=== PATIENT | male | born 1985 | race Caucasian/White ===

== ENCOUNTER 2018-10-08 20:34 | Emergency (ER) | payer OTHER ==
[2018-10-08] MEDS ORDERED: CEPHALEXIN 500MG PREPACK#4 BTL TAKEHOME ONE (21:36)
[2018-10-08] MEDS ORDERED: TDAP ADULT 0.5 ML INJ (BOOSTRIX) IM ONE (21:36)
--- NOTE | 2018-10-08 21:36 | EDPHY ---
H & P Stated Complaint: pain in left big toe x 1 wk, draind yesterday at [facility] Time Seen by Provider: 10/08/18 21:32 HPI/ROS: HPI: This is a 33-year-old male who presents with Chief Complaint: pain in left big toe x 1 wk, drained yesterday at [facility] Location: Left big toe Quality: Pain Duration: 1 week Signs and Symptoms: No bleeding, no radiation, no numbness, no weakness, no tingling, no incontinence, no decreased range of motion, no swelling, + pain, no fever Timing: Improving Severity: Moderate Context: Patient presents with complaints of left big toe pain x1 week. He advises that yesterday at Urgent Care in [place] he had part of his toenail removed. He reports that it is no longer swollen or red. He is unsure of his tetanus status. He has been traveling from [place] over the last several weeks. He is homeless. He has been wearing wet socks and wet boots. Denies fever, radiation, decreased range of motion, paresthesias. Modifying Factors: None Comment: ROS: A comprehensive 10 system review of systems is otherwise negative aside from elements mentioned in the history of present illness. MEDICAL/SURGICAL/SOCIAL HISTORY: Medical history: L4-s1 disk injury Surgical history: urethral surgery, thumb/ wrist surgery Social history: Homeless. Heavy smoker. Originally from [place]. CONSTITUTIONAL: Intoxicated, physically fit large stature white male, awake and alert, no obvious distress HEENT: Atraumatic and normocephalic, PERRL, EOMI. Nares patent; no rhinorrhea; no nasal mucosal edema. Tympanic membranes clear. Oropharynx clear, no exudate and moist pink mucosa. Airway patent. No lymphadenopathy. No meningismus. Cardiovascular: Normal S1/S2, regular rate, regular rhythm, without murmur rub or gallop. PULMONARY/CHEST: Symmetrical and nontender. Clear to auscultation bilaterally. Good air movement. No accessory muscle usage. ABDOMEN: Soft, nondistended, nontender, no rebound, no guarding, no peritoneal signs, no masses or organomegaly. No CVAT. EXTREMITIES: 2/2 pulses, strength 5/5, no deformities, no clubbing, no cyanosis or edema. NEUROLOGICAL: no focal neuro deficits. GCS 15. SKIN: Warm and dry, both feet show mild macerations and breakdown but no obvious scan green, necrosis, cellulitis, abscess. Left big toe shows lateral partial nail removal with no erythema, bleeding, discharge. no rash. Good capillary refill. Source: Patient Exam Limitations: No limitations - Personal History Current Tetanus Diphtheria and Acellular Pertussis (TDAP): Unsure - Medical/Surgical History Hx Asthma: No Hx Chronic Respiratory Disease: No Hx Diabetes: No Hx Cardiac Disease: No Hx Renal Disease: No Hx Cirrhosis: No Hx Alcoholism: No Hx HIV/AIDS: No Hx Splenectomy or Spleen Trauma: No Other PMH: L4-s1 disk injury, urethral surgery, thumb/ wrist surgery, - Social History Smoking Status: Heavy smoker Constitutional: Initial Vital Signs Temperature (C) 37.3 C 10/08/18 20:48 Heart Rate 94 10/08/18 20:48 Respiratory Rate 16 10/08/18 20:48 Blood Pressure 119/77 10/08/18 20:48 O2 Sat (%) 98 10/08/18 20:48 Allergies/Adverse Reactions: No Known Allergies Allergy (Unverified 10/08/18 20:47) Home Medications: Medication Instructions Recorded Cephalexin [Keflex (*)] 500 mg PO TID #21 cap 10/08/18 Medical Decision Making ED Course/Re-evaluation: Vital signs reviewed and stable upon arrival. Nontoxic in appearance. Tetanus booster given. Feet are macerated but no cellulitis, abscess, trench foot. Soaked in 50/50 mixture of Betadine and normal saline. Dried thoroughly and individual digits wrapped with nonocclusive dressing. Given a prepack of Keflex and prescription for same. No signs of neurovascular compromise/tenting of skin/compartment syndrome/ extremities and joints examined above and below area of concern and are neurovascularly intact. This patient was seen under the supervision of my secondary supervising physician. I evaluated and cared for this patient with attending. Differential Diagnosis: Differential diagnosis includes but is not limited to cellulitis, gangrene, trench foot, abscess, necrotizing soft-tissue infections, osteomyelitis, diabetic foot infection, wet sock erosions Departure - Departure Disposition: Home, Routine, Self-Care Clinical Impression: Maceration of skin Condition: Good Instructions: Cellulitis (ED) Additional Instructions: Keep feet clean, warm, dry, bandaged and elevate as needed. Take antibiotic as directed. Do not skip a dose. Referrals: Patient,NotPresent [Primary Care Provider] - As per Instructions [facility],. [Clinic] - As per Instructions Prescriptions: Cephalexin [Keflex (*)] 500 mg PO TID #21 cap
[2018-10-08 22:34] VITALS: BP 103/62
== END 2018-10-08 22:50 | disposition home or self-care (01) ==
DX: R23.8 Other skin changes (principal); M79.675 Pain in left toe(s); Z23 Encounter for immunization; Z59.0 Homelessness

== ENCOUNTER 2018-10-09 14:22 | Emergency (ER) | payer OTHER ==
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
[2018-10-09] MEDS ORDERED: LORazepam 2 MG/ML INJ IVP ONE (14:48)
[2018-10-09] MEDS ORDERED: OLANZapine 10 MG/2 ML VIAL IV ONE (14:48)
[2018-10-09 16:03] LABS: PLATELET COUNT 268 10^3/uL (150-400)
[2018-10-10] MEDS ORDERED: MIDAZOLAM 2 MG/2 ML VIAL ONE (02:54)
[2018-10-10] MEDS ORDERED: NICOTINE POLACRILEX 2 MG GUM B ONE (03:00)
[2018-10-10] MEDS ORDERED: MIDAZOLAM 10 MG/2 ML VIAL IM ONE (03:03)
[2018-10-10] MEDS: NICOTINE POLACRILEX 2 MG GUM B PRN ×3 (03:08→17:02)
[2018-10-10] MEDS ORDERED: LORazepam 1 MG TAB PO ONE ×4 (07:30→17:27)
--- NOTE | 2018-10-10 14:38 | ASMTLCPROG ---
Notes Note: Notes: Spoke to Chanel at [facility] ([phone]) who stated should have bed availability tomorrow. Please call in AM to confirm placement. Date Signed: 10/10/2018 02:37 PM Electronically Signed By:Jada Shearer
--- NOTE | 2018-10-10 16:23 | ASMTTLCEVL ---
TLC Evaluation - Basic Information Evaluation Start Date and 10/10/2018 06:01 AM Time Hospital Status Answers: M1 Hold 72-hr M1 Hold Start Date 10/09/2018 02:30 PM and Time Patient statement Notes: They said I was trespassing. I was checking out a fitness center, and they aggressively told me to leave. I wanted to smoke weed, and I was looking for a cigarette. Narrative Notes: Pt is a 33 yo, , unemployed, homeless, , male, with a history of PTSD brought to [facility] ED by [employer] on an M1 hold on 10/09/18 which states, Hira contacted today at [id number], Jacqueline Frank was threatening staff and customers trying to start fights. Threatened to kill business owners when he got out. Last night was jailed for being combative with police. Upon release became combative and antagonistic with [facility] staff. Per ED report pt was released from [facility] at 10:00am on 10/09/18, then went to a local business in [place] and was bothering the midwife and birth center owner and patrons. He was asking them to punch him so he could then punch them. During the interview, however, pt denied being combative and instead indicated the business midwife and birth center owner was aggressive with him because he was trespassing. Pt reported he used marijuana yesterday morning, though the amount is unknown. UDS results positive for marijuana, and benzodiazepines which were administered in the ED. He denied current thoughts of harming himself or others. Per ED staff, pt was sedated last night due to becoming verbally aggressive. He appeared clean and made good eye contact. He was moderately cooperative, but did not appear to be a reliable historian. Pt did not endorse perceptual disturbances or auditory/visual hallucinations. He did not appear to be responding to internal stimuli. Pt did not require mechanical restraints while in the ED. He was sedated again following the interview, due to becoming verbally aggressive. Diagnosis History Notes: Pt reported he was diagnosed with PTSD while hospitalized at [facility] four years ago due to nervous breakdown. 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 Pt reported he was diagnosed with ADHD while in school, but did not indicate who made this diagnosis. He denied ever being prescribed medication to treat this disorder, but stated he has taken Adderall before and found it to be greatly beneficial. He identified his most recent therapist as Dr. Burgos in [place], [place]. He reported he last met with Dr. Burgos four months ago. Prior suicide attempts Notes: Pt denied a history of suicide attempts. When directly asked, he initially denied ever experiencing suicidal thoughts. However, later in the interview he stated, I felt like I wanted to kill myself 200 times due to his history of chronic back pain. Again, he denied ever attempting suicide. Prior hospitalizations Notes: Pt reported he has been hospitalized approximately eight times; six times at [facility], and the other two he could not recall. He stated his hospitalization at [facility] four years ago was due to a nervous breakdown. He did not provide additional information about prior hospitalizations. Treatment Responses Notes: Unable to assess. History of violence Notes: Pt reported he got into some fights while in school. He reported he was arrested for assault in [place] four years ago. Pt indicated he has been arrested multiple times for assault, but would not provide additional details. When asked if he assaults people often he stated, If they hit me first. Not often. He denied current thoughts of harming others. Therapist: Denied Psychiatrist: Denied Medications (name, dosage, route, freq uency) Notes: Pt denied he is currently prescribed medication. Allergies/Reaction Notes: NKDA. Sleep Notes: Pt denied recent changes in sleep pattern. Appetite Notes: Pt denied recent changes in appetite. Medical/Surgical history Notes: Pt reported he has undergone urethral surgery, and surgery on his thumb, and toe. He reported he has experienced chronic back pain for the past 15 years, which has been largely untreated. He reported he uses marijuana to self-medicate his back pain. Substance use history (frequency, intensity, his tory, duration) Notes: Pt reported he last used marijuana yesterday morning. When asked how much he typically consumes he stated, As much as humanly possible. I would rather than not have it. He reported he ingests marijuana any way I can. When asked what he likes about marijuana he stated, It loosens up my body. Gives me high high intuition, tells me if people are lying. Tells me which direction to go, if people are bullshitting. Its like God. It tells me when to punch people. Pt described a routine in which he consumes large amounts of marijuana, sugar, and sometimes caffeine, and listens to loud music in order to mimic opiates in my brain and relieve physical pain. He stated, Marijuana and music is the only thing that keeps people from killing themselves if they have PTSD. Pt did not provide additional information about his substance use history. Family composition Notes: Pt reported his parents are no longer together, and he has one older brother. He reported his family resides in [place], and denied having any recent contact with them. He stated, We dont get along, I dont talk to them. Theyve lost their son. They dont exist to me anymore. Pt reported his father blocked his phone number. He called his father during the interview and left a voicemail indicating he was meeting with a therapist, and requested this risk management internship to affirm this for his father. Pt did not provide additional information about family composition. Need for family Answers: No participation in patient's care Family psychiatric/substance abuse history Notes: Pt reported his mother is addicted to pain killers and is a huge drug addict. He denied a family history of mental health diagnoses. Developmental history Notes: Unable to assess. Abuse concerns Answers: None Marital status/children Notes: Pt denied he has ever been or fathered any children. He reported he recently broke up with his fianc, Renetta Prabhakar, for whom he moved to [place]. He reported the police told him he could no longer contact her, but did not believe there was a protection order against him. When asked why they broke up he stated, We got into an argument over kids or something. Or me smoking weed in her house. I got pissed and left. She still likes me, Im just waiting for her to contact me so I can give her a kiss before I go to [facility]. Living situation Notes: Pt reported he is homeless and currently lives in his car. Sexual history/orientation Notes: Pt is heterosexual. Not active. Peer support/family strengths Notes: Pt reported his ex-fianc, Renetta Prabhakar, is his only support, though they currently have no contact. Education level/history Notes: Pt reported he completed high school and some college in [place]. Work history Notes: Pt reported he is currently unemployed. 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 He reported he is a . Notes: Pt reported he was in the [employer] from 2002 until 2005. He reported he was honorably discharged due to being injured in training. He denied ever being in combat. 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 Legal Notes: Pt reported he was arrested for assault four years ago. He denied being convicted of this charge. When asked about additional legal history he stated, Youll have to look at my criminal record and did not provide additional information. Scientology/Spiritual Notes: Pt identified himself as Agnostic. None identified which might impact treatment. Leisure Notes: Pt reported he enjoys marijuana and music, marijuana and music, marijuana and music. 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 He reported he is planning to go to [place], [place] to do stand-up comedy. Collateral Notes: Collateral data was provided by officers who brought pt in, the M1 hold, and previous medical record from 10/09/18 visit. Patient's strengths Answers: Artistic/Creative/Musical (Please select at least TWO strengths): Athletic Funny/Using Humor TLC Evaluation - Mental Status Exam Appearance: Answers: Appropriate Clean Well Groomed Neat Eye Contact: Answers: Good/Direct Mood: Answers: Elevated Irritable Affect: Answers: Agitated Congruent w/ Mood Expansive Labile Behavior: Answers: Appropriate Cooperative Impulsive Talkative Speech: Answers: Relevant Illogical Clear Coherent Circumstantial Dramatic Excessive Flight of Ideas Hyperverbal Loose Associations Perseverating Rambling Rapid Thought Process: Answers: Organized Oriented Alert Circumstantial Racing Thoughts Tangential Insight: Answers: Fair Judgement: Answers: Poor Manic Signs/Symptoms Answers: Distractibility Euphoria Grandiosity Impulsivity Irritability Mood Swings Pressured Speech Racing Thoughts Depression Answers: Difficulty Concentrating Signs/Symptoms: Psychomotor Agitation Hallucinations: Answers: None Current Stage of Change Answers: Precontemplation Pt reported to have Answers: No suicidal/self-injuring ideation/behavior? Pt reported to be making Answers: No suicidal/self-injuring threats? Pt reported to have Answers: Yes aggression/assault ideation/behavior? Pt reported to be making Answers: Yes aggression/assault threats? Pt exhibits inability to Answers: No care for self/grave disability? Ideation/behavior is Answers: Yes chronic? Patient has a specific Answers: No plan? Ideation involves Answers: No serious/lethal intent? Ideation has Answers: Yes delusional/hallucinatory content? History of Answers: No suicidal/self-injuring ideation, behavior, or threats? History of Answers: Yes aggressive/assaultive ideation, behavior, or threats? History of serious Answers: No physical harm to self/others while in treatment setting? TLC Evaluation - Suicide/Homicide Risk Suicide Risk Factors: Answers: Agitation Alcohol/Heavy Drug Use Bipolar Disorder Financial Difficulties Impulsivity Lack of Social Support Lack/Loss of Employment Legal Difficulties Serious Health Issue, Pain Single Unstable Living Situation Homicide/violence risk Answers: Heavy Drug Use factors: Threats Towards Others Current Suicidal Answers: No Ideation? Current Suicidal Ideation Answers: No in the Past 48 Hours? Current Suicidal Ideation Answers: No in the Past Month? Suicide Internal Answers: Absence of Psychosis Protective Factors: [place] with Stress Suicide External Answers: Positive Therapeutic Protective Factors: Relationships Ranking of patient's Answers: Low suicidal risk: Ranking of patient's Answers: Moderate homicidal risk: TLC Evaluation - Wrap-up BDI Total Score: Not completed due to pt being escalated. BSS Total Score: Not completed due to pt being escalated. AXIS I Diagnosis (include DSM-V and ICD-10 codes), must also be entered in [employer], which is the source of truth. Notes: Unspecified Bipolar and Related Disorder 296.80 (F31.9) Posttraumatic Stress Disorder 309.81 (F43.10) In consultation with [facility] on-call psychiatrist, Mark Freitas MD, Dr. Freitas concurred that pt appears to meet 27-65 criteria requiring psychiatric hospitalization as pt appears to be at risk of harm to self/others/gravely disabled due to a mental illness condition. Pt was read the Patient Rights and Responsibilities Statement on October 10, 2018 at 09:38 hrs, original placed on chart, and was given photocopy of Rights. Pt signed the Patient Rights. Placement has not been secured at this time. Evaluation End Date and 10/10/2018 09:30 AM Time (HH:JODIE): Date Signed: 10/10/2018 04:23 PM Electronically Signed By:Jada Shearer
[2018-10-10] MEDS ORDERED: OLANZapine 5 MG TAB PO ONE (17:27)
[2018-10-10] MEDS ORDERED: LORazepam 1 MG TAB ONE (17:27)
[2018-10-10] MEDS ORDERED: OLANZapine DISINTEGR 10 MG TAB ONE (17:27)
[2018-10-10] MEDS ORDERED: HYDROCODONE/APAP 5/325 TAB PO ONE (17:54)
[2018-10-11] MEDS ORDERED: HYDROCODONE/APAP 5/325 TAB ONE (00:58)
[2018-10-11] MEDS ORDERED: HYDROCODONE/APAP 5/325 TAB PO ONE ×2 (01:03→02:26)
[2018-10-11] MEDS: NICOTINE POLACRILEX 2 MG GUM B PRN (01:03)
[2018-10-11] MEDS ORDERED: LORazepam 1 MG TAB PO ONE ×2 (01:28→09:39)
[2018-10-11] MEDS ORDERED: CEPACOL LOZENGE PO ONE ×2 (01:30→01:32)
[2018-10-11] MEDS ORDERED: OLANZapine DISINTEGR 10 MG TAB ONE ×2 (02:18→10:48)
[2018-10-11] MEDS ORDERED: OLANZapine 10 MG/2 ML VIAL ONE (06:48)
[2018-10-11] MEDS ORDERED: MIDAZOLAM 2 MG/2 ML VIAL ONE (06:49)
[2018-10-11] MEDS ORDERED: MIDAZOLAM 10 MG/2 ML VIAL IM ONE (06:52)
[2018-10-11] MEDS ORDERED: OLANZapine 10 MG/2 ML VIAL IM ONE (06:52)
[2018-10-11] MEDS: CEPHALEXIN 500 MG CAP PO SCH (09:25)
[2018-10-11] MEDS ORDERED: LORazepam 1 MG TAB ONE (09:37)
[2018-10-11] MEDS ORDERED: OLANZapine DISINTEGR 10 MG TAB PO ONE (10:49)
[2018-10-11 10:59] VITALS: BP 115/60
--- NOTE | 2018-10-11 15:25 | ASMTTCLDSP ---
TLC Discharge Disposition Disposition: Answers: Transfer Disposition Notes: Notes: Transfer placement accepted at [facility] under Dr. Marvin Bolton. Discharge Concerns/Recommendations: Notes: In consultation with [facility] ED physician, Jonathan Stockton MD, pt appears to meet 27-65 critieria requiring psychiatric hospitalization as pt appears to be a danger to others and gravely disabled due to a mental illness condition. Was patient given the Answers: Not applicable Inpatient Behavioral Health Prohibited Belongings List while in the ED? Type of Hold: Answers: M1/72-hour Hold Hold initiated by: Answers: Police For Transfers, Accepting [facility] Hospital Facility: For Transfers, Accepting Marvin Bolton MD Psychiatrist: For Transfers, Reason Pt has Veterans benefits Patient is Being Transferred: Date Signed: 10/11/2018 03:25 PM Electronically Signed By:Jaren Gomez
== END 2018-10-11 10:58 ==
PROC: GZ11ZZZ Psychological Tests, Personality and Behavioral (ICD-10-PCS; principal; 2018-10-09)
DX: F23 Brief psychotic disorder (principal); F43.10 Post-traumatic stress disorder, unspecified; L03.90 Cellulitis, unspecified; F17.200 Nicotine dependence, unspecified, uncomplicated; Z59.0 Homelessness
CPT/HCPCS: 80305; 96374; G0480; J2060; J2250